=== PATIENT | female | born 1955 | race Caucasian/White ===

== ENCOUNTER 2024-01-23 12:31 | Outpatient (CLI) | payer MEDICARE | END 2024-01-23 12:32 | disposition home or self-care (01) | LOC: CSHRAD 12:31 | PROVIDERS: ATTEND Internal Medicine Rheumatology | DX: M46.1 Sacroiliitis, not elsewhere classified (principal) | CPT/HCPCS: 72202 ==

== ENCOUNTER 2025-01-08 13:22 | Outpatient (CLI) | payer MEDICARE | END 2025-01-08 13:23 | disposition home or self-care (01) | LOC: CSHULT 13:22 | PROVIDERS: ATTEND Nurse Practitioner Family | DX: R22.42 Localized swelling, mass and lump, left lower limb (principal) ==